=== PATIENT | male | born 1990 | race Caucasian/White ===

== ENCOUNTER 2016-07-17 14:48 | Emergency (ER) | payer OTHER ==
[~2016-07-17] VITALS: Ht 180.3 cm; Wt 82.1 kg
[~2016-07-17 14:48] MED LIST: MOTRIN600 MG PO
[2016-07-17] MEDS ORDERED: NAPROSYN500 MG PO (16:12)
[2016-07-17] MEDS ORDERED: FLONASE16 G1 BOTH NARES (16:12)
[2016-07-17] MEDS ORDERED: MUCUS ER600 MG PO (16:12)
[2016-07-17 16:25] VITALS: BP 156/97
== END 2016-07-17 16:26 | disposition home or self-care (01) ==
LOC: EME 14:48
DX: J06.9 Acute upper respiratory infection, unspecified (principal); J34.89 Other specified disorders of nose and nasal sinuses; H92.01 Otalgia, right ear; H93.8X3 Other specified disorders of ear, bilateral
CPT/HCPCS: 99281; 99283